=== PATIENT | male | born 1945 | race Caucasian/White ===

== ENCOUNTER 2019-04-05 19:03 | Inpatient (IN) | payer MEDICARE, MEDICAID, SELFPAY ==
[2019-04-05] VITALS (8 sets, daily range): BP systolic 122–157; BP diastolic 63–99; PULSE 66–72; RESP 12–18; TEMP 36.1–36.3; O2SAT 88–100; BMI 24.8
--- NOTE | ~2019-04-05 | XR_ITS ---
XR chest 2V 04/05/2019 19:49 Indication: Shortness of breath. History of bronchitis. Urethral cancer. Procedure: AP and lateral views of the chest Comparison: 11/20/2018 Findings: Heart size normal. Port catheter tip in the SVC. No focal air space disease, pulmonary edwin a, pleural effusion or suspected pneumothorax. No acute osseous abnormality. There is atherosclerosis and ectasia of the aorta. The lungs are hyperinflated which is consistent with, but not diagnostic o f chronic obstructive pulmonary disease. Impression: 1: No acute cardiopulmonary disease. Reviewed, dictated and finalized at location A. RGIST Impression: 1: No acute cardiopulmonary disease.
--- NOTE | ~2019-04-05 | NM_ITS ---
NM lung vent and perfusion INDICATION: Dyspnea. Shortness of breath with exertion. TECHNIQUE: The patient inhaled aerosolized 6.5 mCi xenon-133. Following ventilation scan, 5.4 mCi Tc 99m MAA was injected intravenously for perfusion images. Multiple images were then acquired. COMPARISON: Chest x-ray dated 04/05/2019 220 FINDINGS: The comparison chest radiograph demonstrates no pulmonary infiltrates or pleural fluid. No ventilation/perfusion mismatches are identified. There is retention of tracer washout images, consist ent with obstructive pulmonary disease. There is a matched defects in the left midlung.. IMPRESSION: 1: Low probability for pulmonary embolism.. Reviewed, dictated and finalized at location A. MENT SETTER
--- NOTE | 2019-04-05 19:05 | ED.SOB ---
HPI - SOB/Dyspnea General Chief Complaint: Shortness of Breath/Dyspnea Stated Complaint: diff breathing Time Seen by Provider: 04/05/19 19:05 Source: patient and old records reviewed Mode of arrival: EMS Limitations: no limitations History of Present Illness HPI Narrative: A 73 y/o male presents to the ED via EMS d/t worsening SOB for the past week. He reports associated productive cough, nausea, and some chest discomfort . He notes that any exertion aggravates his SOB and that resting or laying down alleviates his SOB. He denies any fevers, chills, vomiting, diarrhea, ABD pain, and any other medical complaints at this time. MD elicited complaint: shortness of breath Pertinent past history: asthma Onset (ago): week(s) (1) Timing: progressively worsening Exacerbating factors: exertion Relieving factors: rest (and laying down) Known history of: asthma Associated symptoms: chest pain ( discomfort ), cough (productive) and nausea/vomiting (no vomiting) Treatment prior to arrival: oxygen Related Data Home Medications Medication Instructions Recorded Confirmed albuterol sulfate [ProAir HFA] 2 puff INHALATION QID 12/20/18 12/20/18 amlodipine 5 mg PO DAILY 12/20/18 12/20/18 atenolol 100 mg PO DAILY 12/20/18 12/20/18 hydrocodone-acetaminophen 2 tablet PO Q6H PRN 12/20/18 12/20/18 hydroxyzine HCl 10 mg PO QID PRN 12/20/18 12/20/18 losartan 50 mg PO DAILY 12/20/18 12/20/18 omeprazole 20 mg PO BID 12/20/18 12/20/18 rosuvastatin 10 mg PO DAILY 12/20/18 12/20/18 venlafaxine 75 mg PO BID 12/20/18 12/20/18 Allergies Allergy/AdvReac Type Severity Reaction Status Date / Time lisinopril Allergy Mild Rash Verified 12/15/18 12:34 tramadol Allergy Mild Rash Verified 12/15/18 12:34 codeine Allergy Unknown Nausea Verified 12/15/18 12:34 Review of Systems Review of Systems: All systems reviewed & are unremarkable except as noted in HPI and below Constitutional: Constitutional: Denies chills and Denies fever(s) Cardiovascular: Cardiovascular: Reports chest pain ( discomfort ) Respiratory: Respiratory: Reports cough (productive) and Reports dyspnea Gastrointestinal: Gastrointestinal: Denies abdominal pain, Denies diarrhea, Reports nausea and Denies vomiting [facility] Past Medical History Medical History (Updated 04/05/19 @ 22:57 by Eduardo Smith DO) Arthritis Asthma CAD (coronary artery disease) Cataracts, bilateral Depression GERD (gastroesophageal reflux disease) H/O: HTN (hypertension) Herniated disc Hypercholesteremia Prostate CA Ureter cancer Surgical History Surgical History (Updated 04/05/19 @ 19:30 by Jerson Hurtado) H/O prostatectomy History of cystoscopy Hx of bilateral cataract extraction Hx of cardiac cath Social History Social History (Updated 04/05/19 @ 19:30 by Jerson Hurtado) Smoking status: Former smoker Second hand tobacco smoke exposure: Yes Gender identity (if verbalized by the patient): Male Comments PCP: Dr. Lucero. Exam Narrative: Exam Narrative: APPEARANCE: No acute distress, nontoxic, resting in bed EYES: EOMI HEENT: Normocephalic, atraumatic, bilateral turbinates boggy, mild erythema no exudate posterior pharynx RESPIRATORY: No respiratory distress Clear to auscultation bilaterally with no rhonchi wheezing or rales. CARDIOVASCULAR: Regular rate and rhythm without murmurs rubs or gallops. ABDOMINAL: Soft, nontender, nondistended, no rebound or guarding MUSCULOSKELETAl: Moves all extremities. No clubbing, cyanosis or edema. NEURO: Awake and alert. Following commands, speech normal, no focal deficits SKIN:: Warm, dry. No rashes lesions or abrasions PSYCHIATRIC: Normal affect/mood, Course Course Emergency Course: Discussed with patient and family results of workup and diagnosis. Discussed need for admission. Patient and family understand and agree to current treatment plan Consultations Consultation #1: Discussed case with Dr. Norton (Hospitalist). Accepts the pt. Date: 04/05/19 Time: 22:04
[2019-04-05] MEDS: ALBUTEROL SULFATE NEB 2.5 MG/0.5 ML INH 5 MG INHALATION (19:21)
[2019-04-05] MEDS: IPRATROPIUM BR 0.02% INH SOLN 0.5 MG/2.5 ML VIAL INHALATION (19:22)
--- NOTE | 2019-04-05 19:25 | PC.NURSE ---
Report to ROMAN Epperson, to continue care.
[2019-04-05 19:34] LABS: Hematocrit 26.4 % (42.0-52.0); Mean Corpuscular HGB Conc 30.3 g/dl (32-36); Mean Corpuscular Hemoglobin 29.7 pg (26-34); Mean Corpuscular Volume 98.1 fl (80-100); Mean Platelet Volume 10.7 fl (7.4-10.4); Platelet Count Result 213 k/mm3 (150-375); Red Blood Count 2.69 M/mm3 (4.6-6.20); Red Cell Distribution Width 19.4 % (11.5-14.5); White Blood Count 6.8 K/mm3 (4.5-10.0)
[2019-04-05 19:45] LABS: Lactic Acid Reflex 1.8 mmol/L (0.7-2.1)
[2019-04-05 19:46] LABS: Alanine Aminotransferase 11 U/L (4-50); Albumin Level 3.9 g/dL (3.5-5.1); Alkaline Phosphatase 72 U/L (38-126); Aspartate Amino Transferase 26 U/L (17-59); Bilirubin,Total 0.7 mg/dL (0.2-1.3); Blood Urea Nitrogen 32 mg/dL (9-20); Calcium 7.7 mg/dL (8.4-10.2); Carbon Dioxide 25 mmol/L (22-30); Chloride 101 mmol/L (98-107); Estimated CRCL calculation 26 ml/min; Estimated Glomerular Filt Rate 29; Glucose 128 mg/dL (75-110); INR 1.1; Potassium 3.9 mmol/L (3.4-5.0); Prothrombin Time 13.9 Seconds (11.1-14.7); Sodium 140 mmol/L (137-145)
[2019-04-05 19:47] LABS: Partial Thromboplastin Time 41.4 SECONDS (22.3-36.8)
--- NOTE | 2019-04-05 19:47 | ECG_ITS ---
Measurements Intervals Salters Rate: 74 P: 35 WI: 170 QRS: 33 QRSD: 94 T: 39 QT: 413 QTc: 458 Interpretive Statements SINUS RHYTHM FREQUENT VENTRICULAR PREMATURE COMPLEXES NONSPECIFIC T-WAVE ABNORMALITY- INF/LAT LEADS BASELINE ARTIFACT- I, II, III, AVR, AVL, AVF, V1-V6 ABNORMAL ECG Electronically Signed On 04-06-2019 15:37:37 CITY [employer] by Petey Jackson D.O.
[2019-04-05 19:50] LABS: Band Neutrophils Percent 1 % (0-6); Eosinophils Absolute Manual 0.13 K/mm3 (0.02-0.5); Eosinophils Percent Manual 2 % (0-4); Lymphocytes Absolute Manual 0.88 K/mm3 (1.1-4.5); Lymphocytes Percent Manual 13 % (18-44); Monocytes Absolute Manual 1.56 K/mm3 (0.1-0.90); Monocytes Percent Manual 23 % (3-9); Neutrophils Absolute Manual 4.21 K/mm3 (1.3-6.7); Neutrophils Percent Manual 61 % (46-73); Platelet Estimate Adequate (Adequate); Total Cells Counted 100
[2019-04-05 19:51] LABS: Anisocytosis 1+ (NORMAL)
[2019-04-05] MEDS: SODIUM CHLORIDE 0.9% IV 1,000 ML 999 ML IV CONT (19:56)
[2019-04-05 19:58] LABS: NT Pro B Type Natriuretic Pept 10500 PG/ML (5-100); Troponin I < 0.012 ng/mL (0.000-0.034)
--- NOTE | 2019-04-05 20:05 | PC.NURSE ---
pt states he isn't able to urinate at this time. urinal at bedside, IV fluids flowing. pt instructed to use call light when able to give urine sample.
--- NOTE | 2019-04-05 20:30 | PC.NURSE ---
ptgave verbal order ot this rn to walk pt w/ pulse ox. pt 02 sat decreased to 95# w/ few steps. notified.
[2019-04-05 20:48] LABS: Add Urine Microscopic? YES; Appearance Urine Clear (Clear); Bilirubin Urine Negative (Negative); Blood Urine 3+ (Negative); Color Urine Yellow (Yellow); Glucose Urine UA Negative (Negative); Ketones Urine Negative (Negative); Leukocyte Esterase Ur 1+ LEU/UL (Negative); Mucus Urine Rare /lpf; Nitrate Urine Negative (Negative); Protein Urine 2+ mg/dL (Negative); RBC Urine 21-50 /hpf (0-2); Specific Grav Ur 1.013 (1.001-1.035); Squamous Epithelial Cell Urine Rare /hpf (Few); Urobilinogen Urine Negative mg/dL (<2.0); WBC Urine 31-50 /hpf
--- NOTE | 2019-04-05 23:16 | ADMGEN ---
This patient, William Cruz, was admitted to Medical Room 346-. Patient/family oriented to hospital policies and general routines including ID bracelet, bed and alarms, visiting hours, pain management, procedures, bathroom and other care routines, personal items, smoking policy, room service/diet, and visiting hours. Valuables list has been completed. Information on how to activate the Rapid Response Team has been discussed. Patient/Family are encouraged to report perceived risks to care and to ask questions if they do not understand what they are told or what they should do.
[2019-04-06] VITALS (17 sets, daily range): BP systolic 132–177; BP diastolic 56–89; PULSE 58–91; RESP 16–20; TEMP 36–37.3; O2SAT 91–98; BMI 24.8
[2019-04-06 05:13] LABS: Basophils Percent Auto 0.9 % (0.2-1.2); Eosinophils Percent Auto 0.7 % (0-4.4); Hematocrit 23.1 % (42.0-52.0); Immature Granulocyte Absolute 0.07 K/mm3 (0.00-0.031); Immature Granulocyte Percent A 1.5 % (0-0.5); Lymphocytes Absolute Auto 0.89 K/mm3 (0.9-3.2); Lymphocytes Percent Auto 19.6 % (18.3-44.2); Mean Corpuscular HGB Conc 29.9 g/dl (32-36); Mean Corpuscular Hemoglobin 29.5 pg (26-34); Mean Corpuscular Volume 98.7 fl (80-100); Monocytes Absolute Auto 1.4 K/mm3 (0.1-0.6); Monocytes Percent Auto 31.5 % (2.6-8.5); Neutrophils Absolute Auto 2.1 K/mm3 (1.3-6.7); Neutrophils Percent Auto 45.8 % (45.5-73.1); Nucleated Red Blood Cells Absolute Auto 0.1 K/mm3 (0.0-0.012); Nucleated Red Blood Cells Perc 1.5 % (0.0-0.2); Platelet Count Result 170 k/mm3 (150-375); Red Blood Count 2.34 M/mm3 (4.6-6.20); Red Cell Distribution Width 19.2 % (11.5-14.5); White Blood Count 4.5 K/mm3 (4.5-10.0)
[2019-04-06 05:26] LABS: Alanine Aminotransferase 9 U/L (4-50); Albumin Level 3.3 g/dL (3.5-5.1); Alkaline Phosphatase 61 U/L (38-126); Aspartate Amino Transferase 24 U/L (17-59); Bilirubin,Total 0.4 mg/dL (0.2-1.3); Blood Urea Nitrogen 33 mg/dL (9-20); Calcium 7.2 mg/dL (8.4-10.2); Carbon Dioxide 27 mmol/L (22-30); Chloride 105 mmol/L (98-107); Estimated CRCL calculation 31 ml/min; Estimated Glomerular Filt Rate 35; Glucose 99 mg/dL (75-110); Potassium 3.7 mmol/L (3.4-5.0); Sodium 140 mmol/L (137-145)
[2019-04-06 07:45] LABS: Hemoglobin 6.9 g/dL (14.0-18.0)
[2019-04-06 07:46] LABS: Anisocytosis 1+ (NORMAL); Hypochromasia 1+ (NORMAL); Platelet Estimate Adequate (Adequate)
--- NOTE | 2019-04-06 08:20 | ECHO_ITS ---
Patient Info Name: William Cruz Age: 73 years : 1945 Gender: Male Ht: 69 in Wt: 168 lbs BSA: 1.93 m2 HR: 76 bpm BP: 177 / 62 mmHg Heart Rhythm: Sinus Rhythm Technical Quality: Good Exam Date: 04/06/2019 9:04 AM Exam Location: [facility] Pulmonary Patient Status: Inpatient Admit Date: 04/05/2019 Staff Ordering Physician: Virgilio Mi MD Rn Surgical Pcu: Jack Phillips RDCS Attending Provider: Ayaz Norton MD Referring Physician: Hiwot ARANGO; Exam Type: CA echo dop color flow w con Study Info Indications R06.02 - Shortness of breath Complete two-dimensional, color flow and Doppler transthoracic echocardiogram is performed with contrast to opacify the left ventrical and to improve the deliniation of the left ventrical endocarial boarders. History/Risk Factors Acute respiratory failure w/ hypoxia; CAD, SOB, CHF w/ BNP 10.5k, HTN. Summary 1. Left ventricular systolic function is normal, estimated at 65-70%. 2. There is mild concentric increased left ventricular wall thickness. 3. There is mild aortic valve stenosis with a peak velocity of 216.68 cm/s, mean gradient of 9 mmHg, and aortic valve area of 1.46 cm2. Left Ventricle Left ventricular chamber dimension is normal. Left ventricular systolic function is normal, estimated at 65-70%. There is mild concentric increased left ventricular wall thickness. The left ventricular diastolic function is grade I diastolic dysfunction. Right Ventricle Right ventricular chamber dimension is normal. Left Atria Left atrial chamber dimension is mildly enlarged. Right Atria Right atrial chamber dimension is normal. Aortic Valve The aortic valve is trileaflet. There is moderate aortic valve sclerosis. There is mild aortic valve stenosis with a peak velocity of 216.68 cm/s, mean gradient of 9 mmHg, and aortic valve area of 1.46 cm2. Pulmonic Valve The pulmonic valve is not well visualized. Mitral Valve The mitral valve has normal leaflets and calcified annulus. Tricuspid Valve The tricuspid valve leaflets are normal. Pericardium/Pleural The pericardium appears normal. Aorta The aortic root size at the sinus of Valsalva is normal. Left Ventricular Outflow Tract Name Value Normal LVOT 2D LVOT Diameter 1.79 cm LVOT Doppler LVOT Peak Gradient 6 mmHg LVOT Mean Gradient 3 mmHg LVOT VTI 22.79 cm LVOT VTI/AV VTI Ratio 0.58 LVOT Stroke Volume 57.48 ml LVOT CO 4.69 l/min LVOT CI 2.43 L/min/m2 Mitral Valve Name Value Normal MV Doppler MV Decel [place] 311.20 cm/s2 MV PHT 0 s MV Area (PHT) 2.31 cm
[2019-04-06] MEDS: IPRATROPIUM BR 0.02% INH SOLN 0.5 MG/2.5 ML VIAL INHALATION ×3 (08:39→19:30)
[2019-04-06] MEDS: ALBUTEROL SULFATE NEB 2.5 MG/0.5 ML INH 5 MG INHALATION ×3 (08:40→19:30)
--- NOTE | 2019-04-06 10:35 | PM.IMHP ---
H&P: HPI History of Present Illness Chief complaint: ACUTE RESPIRATORY FAILURE WITH HYPOXIA,UTI,BRONCHI Narrative: Date of visit 04/06/2019 1000. William Cruz is a 73 year old hypertensive white male undergoing chemotherapy for ureteral carcinoma with . He presented to the emergency room per EMS with increasing shortness of breath over the last week. Has had a cough productive of greenish phlegm without any chest pain or shortness of breath at notice specially shortness breath with exertion relieved with resting or lying down. No PND or orthopnea. He arrived on oxygen at 1 point he dipped to 88% in the ER with normal chest x-ray and ventilation perfusion lung scan he was admitted for treatment. States that he felt better after the updrafts and breathing easier this a.m. Review of Systems Review of Systems: Narrative: Constitutional: States that he has lost about 20 lb with chemotherapy and as stated above no fever no chills. Appetite has been poor Eyes: No double visions or scotoma Mouth no pharyngitis laryngitis Pulmonary as per present illness CV no palpitation or chest pain as stated or pedal edema GI no melena hematochezia diarrhea nausea are or vomiting no dysuria no hematuria Muscle skeletal no particular joint discomfort Integument no skin breakdown rashes Neuro no seizures no syncope Psych no on toward depression Remainder of the review of systems if not documented here were evaluated and found to be negative [facility] Past Medical History Medical History (Updated 04/06/19 @ 10:46 by Virgilio Mi MD) Arthritis Asthma CAD (coronary artery disease) Cataracts, bilateral Depression GERD (gastroesophageal reflux disease) H/O: HTN (hypertension) Herniated disc Hypercholesteremia Prostate CA Ureter cancer Surgical History Surgical History (Updated 04/05/19 @ 19:30 by Jerson Hurtado) H/O prostatectomy History of cystoscopy Hx of bilateral cataract extraction Hx of cardiac cath Family History Family History (Updated 04/05/19 @ 23:35 by Latoya Lundberg RN) Father Acute myocardial infarction Hypertension Prostate carcinoma Mother Cerebrovascular accident Congestive heart failure Hypertension Sibling Lung cancer Social History Social History (Updated 04/05/19 @ 19:30 by Jerson Hurtado) Smoking packs per day: 2.5 Smoking cigarettes per day: 50.0 Years smoked: 27 Smoking pack-years: 67.50 Smoking status: Former smoker Second hand tobacco smoke exposure: Yes Alcohol intake: never Substance use: never Substance use type: does not use Gender identity (if verbalized by the patient): Male Spiritual care concerns: No Agree to blood products: Yes Meds Home Medications and Allergies Home Medications Medication Instructions Recorded Confirmed Type albuterol sulfate [ProAir HFA] 2 puff INHALATION QID PRN 12/20/18 04/05/19 History amlodipine 5 mg PO DAILY 12/20/18 04/05/19 History atenolol 100 mg PO DAILY 12/20/18 04/05/19 History hydroxyzine HCl 10 mg PO QID PRN 12/20/18 04/05/19 History omeprazole 20 mg PO BID 12/20/18 04/05/19 History rosuvastatin 10 mg PO DAILY 12/20/18 04/05/19 History venlafaxine 75 mg PO BID 12/20/18 04/05/19 History acetaminophen [Acetaminophen Extra 1,000 mg PO QID PRN 04/05/19 04/05/19 History Strength] calcipotriene 1 applic TOPICAL BID PRN 04/05/19 04/05/19 History aspirin 81 mg PO DAILY 04/06/19 04/06/19 History Allergies Allergy/AdvReac Type Severity Reaction Status Date / Time lisinopril Allergy Mild Rash Verified 12/15/18 12:34 tramadol Allergy Mild Rash Verified 12/15/18 12:34 codeine Allergy Unknown Nausea Verified 12/15/18 12:34 Vital Signs Vital Signs - 24 hr 04/05/19 18:56 04/05/19 20:24 04/05/19 21:04 Temperature 36.1 C L Pulse Rate 67 66 Respiratory Rate 18 16 Blood Pressure 136/72 142/63 H Pulse Oximetry 94 92 88 L 04/05/19 21:06 04/05/19 21:07 04/05/19 22:38 Temperature Pulse Rate
[2019-04-06] MEDS: ASPIRIN 81 MG CHEWABLE TABLET PO (11:02)
[2019-04-06] MEDS: AMLODIPINE BESYLATE 5 MG TABLET PO (11:02)
[2019-04-06] MEDS: atenoloL 50 MG TABLET 100 MG PO (11:02)
[2019-04-06] MEDS: DOXYCYCLINE HYCLATE 100 MG TABLET PO ×2 (11:02→21:02)
[2019-04-06] MEDS: hydrOXYzine HCL 10 MG TABLET PO (11:03)
[2019-04-06] MEDS: ROSUVASTATIN 10 MG TABLET PO (11:03)
[2019-04-06] MEDS: PANTOPRAZOLE 40 MG TABLET PO ×2 (11:03→21:02)
[2019-04-06 11:23] LABS: Reticulocyte Hemoglobin Conten 27.1 pg (28.2-35.7); Reticulocyte Percent 6.08 % (0.7-4.3); Reticulocytes Absolute 0.15 B/L (32.2-175.7)
[2019-04-06 11:31] LABS: Lactate Dehydrogenase 879 U/L (313-618)
[2019-04-06 11:54] LABS: Iron 37 ug/dL (49-181)
[2019-04-06 12:04] LABS: Percent Iron Saturation 14 % (20-50)
[2019-04-06] MEDS: SODIUM CHLORIDE 0.9% IV 250 ML 30 ML IV CONT (14:21)
[2019-04-06] MEDS: VENLAFAXINE HCL 75 MG TABLET PO (18:16)
[2019-04-06] MEDS: MELATONIN 5 MG TABLET PO (21:02)
[2019-04-06] MEDS: ENOXAPARIN 30 MG/0.3 ML SYRINGE SUB-Q (21:02)
[2019-04-07] VITALS (17 sets, daily range): BP systolic 111–149; BP diastolic 69–72; PULSE 66–88; RESP 16–18; TEMP 36.3–36.4; O2SAT 84–94
[2019-04-07] MEDS: IPRATROPIUM BR 0.02% INH SOLN 0.5 MG/2.5 ML VIAL INHALATION ×4 (01:45→19:50)
[2019-04-07] MEDS: ALBUTEROL SULFATE NEB 2.5 MG/0.5 ML INH 5 MG INHALATION ×4 (01:45→19:50)
[2019-04-07 06:05] LABS: Basophils Absolute Auto 0.1 K/mm3 (0.0-0.1); Basophils Percent Auto 1.3 % (0.2-1.2); Eosinophils Percent Auto 0.7 % (0-4.4); Hematocrit 26.7 % (42.0-52.0); Hemoglobin 8.1 g/dL (14.0-18.0); Immature Granulocyte Absolute 0.09 K/mm3 (0.00-0.031); Immature Granulocyte Percent A 1.6 % (0-0.5); Lymphocytes Absolute Auto 0.88 K/mm3 (0.9-3.2); Lymphocytes Percent Auto 15.8 % (18.3-44.2); Mean Corpuscular HGB Conc 30.3 g/dl (32-36); Mean Corpuscular Hemoglobin 28.9 pg (26-34); Mean Corpuscular Volume 95.4 fl (80-100); Mean Platelet Volume 11.4 fl (7.4-10.4); Monocytes Absolute Auto 1.6 K/mm3 (0.1-0.6); Monocytes Percent Auto 28.5 % (2.6-8.5); Neutrophils Absolute Auto 2.9 K/mm3 (1.3-6.7); Neutrophils Percent Auto 52.1 % (45.5-73.1); Nucleated Red Blood Cells Perc 0.7 % (0.0-0.2); Platelet Count Result 175 k/mm3 (150-375); Red Cell Distribution Width 19.1 % (11.5-14.5); White Blood Count 5.6 K/mm3 (4.5-10.0)
[2019-04-07 06:26] LABS: Blood Urea Nitrogen 30 mg/dL (9-20); Calcium 7.5 mg/dL (8.4-10.2); Carbon Dioxide 25 mmol/L (22-30); Chloride 103 mmol/L (98-107); Estimated CRCL calculation 31 ml/min; Estimated Glomerular Filt Rate 35; Glucose 90 mg/dL (75-110); Potassium 3.7 mmol/L (3.4-5.0); Sodium 139 mmol/L (137-145)
[2019-04-07] MEDS: atenoloL 50 MG TABLET 100 MG PO (10:10)
[2019-04-07] MEDS: VENLAFAXINE HCL 75 MG TABLET PO ×2 (10:11→17:06)
[2019-04-07] MEDS: DOXYCYCLINE HYCLATE 100 MG TABLET PO ×2 (10:11→21:06)
[2019-04-07] MEDS: ROSUVASTATIN 10 MG TABLET PO (10:11)
[2019-04-07] MEDS: ASPIRIN 81 MG CHEWABLE TABLET PO (10:12)
[2019-04-07] MEDS: AMLODIPINE BESYLATE 5 MG TABLET PO (10:12)
[2019-04-07] MEDS: PANTOPRAZOLE 40 MG TABLET PO ×2 (10:12→21:06)
[2019-04-07] MEDS: methylPREDNISolone SOD SUCC 40 MG VIAL IV PUSH ×2 (13:56→21:07)
--- NOTE | 2019-04-07 16:17 | PC.NURSE ---
Patient refuses bed alarm. Physician aware.
--- NOTE | 2019-04-07 17:22 | PM.IMPN ---
Progress Note: A&P Assessment and Plan (1) Acute respiratory failure with hypoxia: Code(s): J96.01 - Acute respiratory failure with hypoxia Status: Acute Assessment and Plan: Probable multifactorial, bronchitis, anemia. with elevated BNP echo performed which showed normal ejection fraction and no valvular problems probable grade 1 diastolic dysfunction only Will need more than a 2 midnight stay for treatment of above (2) Anemia: Code(s): D64.9 - Anemia, unspecified Status: Acute Assessment and Plan: Again multifactorial. Chronic anemia secondary to his ongoing chronic renal failure but with his recent chemotherapy contributing. No history of any blood loss. With hemoglobin dipping below 7 04/06, transfused 1 unit packed cells and HGB 8.1 today. Iron studies compatible with anemia chronic disease but B12 level only 276 so will give injection of cyanocobalamin (3) Pyuria: Code(s): R82.81 - Pyuria Status: Acute Assessment and Plan: No urinary symptoms and with his urological problems could be chronic and cultures are no growth (4) Bronchitis: Code(s): J40 - Bronchitis, not specified as acute or chronic Status: Acute Assessment and Plan: Productive cough by history and crackles on physical exam. Cultures obtained and started on ceftriaxone and added doxycycline. If echo benign and improving so will hold off on CT of chest (5) Chronic renal failure, stage 3 (moderate): Code(s): N18.3 - Chronic kidney disease, stage 3 (moderate) Status: Acute Assessment and Plan: Creatinine essentially unchanged from prior continue to monitor stable at 1.9 (6) Malignant neoplasm of right ureter: Code(s): C66.1 - Malignant neoplasm of right ureter Status: Acute Assessment and Plan: Finishing last round of chemo and following with Dr. Melania fink (7) DVT prophylaxis: Code(s): Z29.9 - Encounter for prophylactic measures, unspecified Status: Acute Assessment and Plan: Low-dose Lovenox Subjective Date/time seen: 04/07/19 17:22 Interval history: Date of visit 04/07/2019. 73-year-old male with mild COPD hypertension undergoing chemotherapy for ureteral carcinoma presented with increasing cough and shortness of breath. No definite infiltrate on chest x-ray but with wheezing and productive cough treated with and antibiotics with updraft treatments. Feel some better but still short of breath with exertion. No pedal edema as before Exam Narrative: Exam Narrative: Blood pressure 110/72 pulse 82 with respirations 16 per minute afebrile saturating 93% on 1 L nasal cannula Pupils equal reactive to light sclera anicteric Mouth mucosa appears normal dentures Neck supple Lungs faint expiratory wheezing and still faint crackle right posterior base CV regular rate rhythm no murmurs or gallops Abdomen soft nontender no masses Extremities without edema distal pulses are 2+ Neuro alert pleasant cooperative no focal deficits Objective Data Vital Signs Vital Signs: Vital Signs - 24 hr 04/06/19 17:55 04/06/19 18:10 04/06/19 19:31 Temperature 36.7 C 36.0 C L Pulse Rate 72 68 70 Respiratory Rate 16 16 16 Blood Pressure 144/72 H 156/72 H Pulse Oximetry 94 95 95 04/06/19 19:41 04/06/19 22:00 04/07/19 01:45 Temperature 36.4 C L Pulse Rate 74 72 72 Respiratory Rate 18 16 Blood Pressure 151/78 H Pulse Oximetry 95 04/07/19 01:54 04/07/19 05:14 04/07/19 08:40 Temperature 36.4 C Pulse Rate 74 70 86 Respiratory Rate 16 18 16 Blood Pressure 149/69 H Pulse Oximetry 94 04/07/19 08:42 04/07/19 08:45 04/07/19 08:50 Temperature Pulse Rate 76 88 Respiratory Rate 16 16 Blood Pressure Pulse Oximetry 91 91 04/07/19 10:10 04/07/19 12:58 04/07/19 13:03 Temperature Pulse Rate 76 78 80 Respiratory Rate 16 16 Blood Pressure Pulse Oximetry 04/07/19 13:46 04/07/19 14:02 04/07/19
[2019-04-07] MEDS: MELATONIN 5 MG TABLET PO (21:06)
[2019-04-07] MEDS: ENOXAPARIN 30 MG/0.3 ML SYRINGE SUB-Q (21:07)
[2019-04-08] VITALS (15 sets, daily range): BP systolic 142–148; BP diastolic 73–74; PULSE 62–84; RESP 16–20; TEMP 36.1–36.6; O2SAT 91–97
[2019-04-08] MEDS: ALBUTEROL SULFATE NEB 2.5 MG/0.5 ML INH 5 MG INHALATION ×4 (01:05→19:41)
[2019-04-08] MEDS: IPRATROPIUM BR 0.02% INH SOLN 0.5 MG/2.5 ML VIAL INHALATION ×4 (01:05→19:41)
[2019-04-08 05:58] LABS: Basophils Percent Auto 0.3 % (0.2-1.2); Hematocrit 27.3 % (42.0-52.0); Hemoglobin 8.2 g/dL (14.0-18.0); Immature Granulocyte Absolute 0.16 K/mm3 (0.00-0.031); Immature Granulocyte Percent A 4.3 % (0-0.5); Lymphocytes Absolute Auto 0.36 K/mm3 (0.9-3.2); Lymphocytes Percent Auto 9.7 % (18.3-44.2); Mean Corpuscular Volume 96.5 fl (80-100); Mean Platelet Volume 11.6 fl (7.4-10.4); Monocytes Absolute Auto 0.2 K/mm3 (0.1-0.6); Monocytes Percent Auto 6.2 % (2.6-8.5); Neutrophils Percent Auto 79.5 % (45.5-73.1); Nucleated Red Blood Cells Perc 0.8 % (0.0-0.2); Platelet Count Result 166 k/mm3 (150-375); Red Blood Count 2.83 M/mm3 (4.6-6.20); Red Cell Distribution Width 18.4 % (11.5-14.5); White Blood Count 3.7 K/mm3 (4.5-10.0)
[2019-04-08 06:10] LABS: Blood Urea Nitrogen 34 mg/dL (9-20); Calcium 7.7 mg/dL (8.4-10.2); Carbon Dioxide 24 mmol/L (22-30); Chloride 105 mmol/L (98-107); Estimated CRCL calculation 29 ml/min; Estimated Glomerular Filt Rate 33; Glucose 167 mg/dL (75-110); Potassium 4.1 mmol/L (3.4-5.0); Sodium 141 mmol/L (137-145)
[2019-04-08] MEDS: methylPREDNISolone SOD SUCC 40 MG VIAL IV PUSH ×3 (06:10→21:30)
[2019-04-08] MEDS: DOXYCYCLINE HYCLATE 100 MG TABLET PO ×2 (09:20→21:30)
[2019-04-08] MEDS: atenoloL 50 MG TABLET 100 MG PO (09:20)
[2019-04-08] MEDS: ASPIRIN 81 MG CHEWABLE TABLET PO (09:20)
[2019-04-08] MEDS: AMLODIPINE BESYLATE 5 MG TABLET PO (09:20)
[2019-04-08] MEDS: ROSUVASTATIN 10 MG TABLET PO (09:20)
[2019-04-08] MEDS: PANTOPRAZOLE 40 MG TABLET PO ×2 (09:21→21:30)
[2019-04-08] MEDS: VENLAFAXINE HCL 75 MG TABLET PO ×2 (09:21→16:51)
--- NOTE | 2019-04-08 13:46 | PM.IMPN ---
Progress Note: A&P Assessment and Plan (1) Acute respiratory failure with hypoxia: Code(s): J96.01 - Acute respiratory failure with hypoxia Status: Acute Assessment and Plan: Probable multifactorial, bronchitis, anemia. with elevated BNP echo performed which showed normal ejection fraction and no valvular problems probable grade 1 diastolic dysfunction only Will need more than a 2 midnight stay for treatment of above (2) Anemia: Code(s): D64.9 - Anemia, unspecified Status: Acute Assessment and Plan: Again multifactorial. Chronic anemia secondary to his ongoing chronic renal failure but with his recent chemotherapy contributing. No history of any blood loss. With hemoglobin dipping below 7 04/06, transfused 1 unit packed cells and HGB 8.2 today. Iron studies compatible with anemia chronic disease but B12 level only 276 so will give injection of cyanocobalamin (3) Pyuria: Code(s): R82.81 - Pyuria Status: Acute Assessment and Plan: No urinary symptoms and with his urological problems could be chronic and cultures are no growth (4) Bronchitis: Code(s): J40 - Bronchitis, not specified as acute or chronic Status: Acute Assessment and Plan: Productive cough by history and crackles on physical exam. Cultures obtained and started on ceftriaxone and added doxycycline. If echo benign and improving so will hold off on CT of chest (5) Chronic renal failure, stage 3 (moderate): Code(s): N18.3 - Chronic kidney disease, stage 3 (moderate) Status: Acute Assessment and Plan: Creatinine essentially unchanged from prior continue to monitor stable at 1.9-2.0 (6) Malignant neoplasm of right ureter: Code(s): C66.1 - Malignant neoplasm of right ureter Status: Acute Assessment and Plan: Finishing last round of chemo and following with Dr. Velázquez (7) DVT prophylaxis: Code(s): Z29.9 - Encounter for prophylactic measures, unspecified Status: Acute Assessment and Plan: Low-dose Lovenox Subjective Date/time seen: 04/08/19 13:46 Interval history: Date of visit 04/08/2019. 73-year-old male with mild COPD hypertension undergoing chemotherapy for ureteral carcinoma presented with increasing cough and shortness of breath. No definite infiltrate on chest x-ray but with wheezing and productive cough treated with and antibiotics with updraft treatments. Feel some better but still short of breath with exertion. Still desaturates on room air No pedal edema as before Exam Narrative: Exam Narrative: Blood pressure 142/74 pulse 68 with respirations 16 per minute afebrile saturating 92% on 1 L nasal cannula Pupils equal reactive to light sclera anicteric Mouth mucosa appears normal dentures Neck supple Lungs no wheezing today and but faint crackle right posterior base CV regular rate rhythm no murmurs or gallops Abdomen soft nontender no masses Extremities without edema distal pulses are 2+ Neuro alert pleasant cooperative no focal deficits Objective Data Vital Signs Vital Signs: Vital Signs - 24 hr 04/07/19 14:02 04/07/19 14:03 04/07/19 19:50 Temperature Pulse Rate 82 Respiratory Rate 16 Blood Pressure Pulse Oximetry 84 L 92 04/07/19 20:02 04/07/19 22:00 04/07/19 23:30 Temperature 36.4 C Pulse Rate 82 66 Respiratory Rate 16 16 Blood Pressure 128/69 Pulse Oximetry 92 92 04/08/19 01:05 04/08/19 01:14 04/08/19 06:14 Temperature 36.6 C Pulse Rate 79 78 67 Respiratory Rate 16 16 18 Blood Pressure 142/74 H Pulse Oximetry 97 04/08/19 07:27 04/08/19 07:42 04/08/19 09:20 Temperature Pulse Rate 67 79 67 Respiratory Rate 20 20 Blood Pressure Pulse Oximetry 91 04/08/19 09:30 Temperature Pulse Rate 67 Respiratory Rate 20 Blood Pressure Pulse Oximetry 91 Intake/Output Intake/Output: Intake & Output 04/05/19 04/06/19 04/07/19 04/08/19 23:59 23:59 23:5
[2019-04-08] MEDS: MELATONIN 5 MG TABLET PO (21:30)
[2019-04-08] MEDS: ENOXAPARIN 30 MG/0.3 ML SYRINGE SUB-Q (21:31)
[2019-04-09] VITALS (11 sets, daily range): BP systolic 129; BP diastolic 60; PULSE 66–80; RESP 16–20; TEMP 36.5; O2SAT 86–92
[2019-04-09] MEDS: ALBUTEROL SULFATE NEB 2.5 MG/0.5 ML INH 5 MG INHALATION ×2 (03:20→09:03)
[2019-04-09] MEDS: IPRATROPIUM BR 0.02% INH SOLN 0.5 MG/2.5 ML VIAL INHALATION ×2 (03:21→09:03)
[2019-04-09 06:44] LABS: Basophils Percent Auto 0.2 % (0.2-1.2); Hematocrit 24.6 % (42.0-52.0); Hemoglobin 7.5 g/dL (14.0-18.0); Immature Granulocyte Absolute 0.31 K/mm3 (0.00-0.031); Immature Granulocyte Percent A 3.1 % (0-0.5); Mean Corpuscular HGB Conc 30.5 g/dl (32-36); Mean Corpuscular Hemoglobin 29.2 pg (26-34); Mean Corpuscular Volume 95.7 fl (80-100); Mean Platelet Volume 10.8 fl (7.4-10.4); Monocytes Absolute Auto 0.8 K/mm3 (0.1-0.6); Monocytes Percent Auto 7.9 % (2.6-8.5); Neutrophils Absolute Auto 8.3 K/mm3 (1.3-6.7); Neutrophils Percent Auto 83.8 % (45.5-73.1); Nucleated Red Blood Cells Perc 0.3 % (0.0-0.2); Platelet Count Result 165 k/mm3 (150-375); Red Blood Count 2.57 M/mm3 (4.6-6.20); Red Cell Distribution Width 18.3 % (11.5-14.5); White Blood Count 9.9 K/mm3 (4.5-10.0)
[2019-04-09] MEDS: methylPREDNISolone SOD SUCC 40 MG VIAL IV PUSH (06:49)
[2019-04-09 07:17] LABS: Blood Urea Nitrogen 49 mg/dL (9-20); Carbon Dioxide 23 mmol/L (22-30); Chloride 104 mmol/L (98-107); Estimated CRCL calculation 31 ml/min; Estimated Glomerular Filt Rate 35; Glucose 154 mg/dL (75-110); Potassium 4.1 mmol/L (3.4-5.0); Sodium 139 mmol/L (137-145)
[2019-04-09] MEDS: ROSUVASTATIN 10 MG TABLET PO (09:03)
[2019-04-09] MEDS: DOXYCYCLINE HYCLATE 100 MG TABLET PO (09:03)
[2019-04-09] MEDS: AMLODIPINE BESYLATE 5 MG TABLET PO (09:03)
[2019-04-09] MEDS: VENLAFAXINE HCL 75 MG TABLET PO (09:03)
[2019-04-09] MEDS: ASPIRIN 81 MG CHEWABLE TABLET PO (09:03)
[2019-04-09] MEDS: PANTOPRAZOLE 40 MG TABLET PO (09:03)
[2019-04-09] MEDS: atenoloL 50 MG TABLET 100 MG PO (09:03)
--- NOTE | 2019-04-09 13:50 | HOMEO2EVAL ---
Home Oxygen Evaluation RC: Home Oxygen (O2) Evaluation Start: 04/09/19 07:07 Freq: ONCE Status: Active Protocol: RPE Activity Type Activity Date Activity User E-Sign Co-Sign Detail Recorded Client Recorded Date Recorded By Document 04/09/19 12:05 KRM [email or web address] 04/09/19 13:49 KRM Document 04/09/19 12:08 KRM [email or web address] 04/09/19 13:49 KRM Document 04/09/19 12:09 KRM [email or web address] 04/09/19 13:49 KRM Document 04/09/19 12:11 KRM [email or web address] 04/09/19 13:49 KRM Document 04/09/19 12:20 KRM [email or web address] 04/09/19 13:49 KRM 04/09/19 04/09/19 04/09/19 12:05 12:08 12:09 Home O2 Evaluation Test Phase Resting Exercise Exercise Oxygen Delivery Room Air Room Air Nasal Cannula Oxygen Flow Rate (L/min) 1 Pulse Oximetry (90-100 %) 92 86 L 88 L Pulse Rate (60-100 beats/min) 74 70 78 Activity Tolerance Good Good Ambulation Distance (feet) Treatment Charges O2 Evaluation 04/09/19 04/09/19 12:11 12:20 Home O2 Evaluation Test Phase Exercise Resting Oxygen Delivery Nasal Cannula Room Air Oxygen Flow Rate (L/min) 2 Pulse Oximetry (90-100 %) 91 92 Pulse Rate (60-100 beats/min) 70 78 Activity Tolerance Good Ambulation Distance (feet) 200 Treatment Charges
--- NOTE | 2019-04-09 13:50 | PCRCNOTE ---
HOME O2 EVALUATION DONE. PT. CURRENT HOME O2 NEEDS DID NOT CHANGE. PT. CURRENTLY WEARS 2LPM WITH ACTIVITY.
--- NOTE | 2019-04-11 13:26 | PM.DS ---
DS: Diagnosis Admitting Diagnosis Admitting Diagnosis: Acute respiratory failure with hypoxia Discharge Diagnosis (1) Acute respiratory failure with hypoxia: Code(s): J96.01 - Acute respiratory failure with hypoxia Status: Acute Assessment and Plan: Probable multifactorial, bronchitis, anemia. with elevated BNP echo performed which showed normal ejection fraction and no valvular problems probable grade 1 diastolic dysfunction only Transfused and treated for copd exacerbation and improved ventilation perfusion lung scan low probability for PE (2) Anemia: Code(s): D64.9 - Anemia, unspecified Status: Acute Assessment and Plan: Again multifactorial. Chronic anemia secondary to his ongoing chronic renal failure but with his recent chemotherapy contributing. No history of any blood loss. With hemoglobin dipping below 7 04/06, transfused 1 unit packed cells and HGB 7.5 day of discharge. Iron studies compatible with anemia chronic disease but B12 level only 276 so gave injection of cyanocobalamin 1000 (3) Pyuria: Code(s): R82.81 - Pyuria Status: Acute Assessment and Plan: No urinary symptoms and with his urological problems could be chronic and cultures are no growth (4) Bronchitis: Code(s): J40 - Bronchitis, not specified as acute or chronic Status: Acute Assessment and Plan: Productive cough by history and crackles on physical exam. Cultures obtained and started on ceftriaxone and added doxycycline. If echo benign and improved Steroids were added and treated as copd exacerbation with resolution patient has oxygen at home which she has used on an as-needed basis. was seen by respiratory therapy for evaluation continued uses same especially with exertion at 2 L nasal cannula (5) Chronic renal failure, stage 3 (moderate): Code(s): N18.3 - Chronic kidney disease, stage 3 (moderate) Status: Acute Assessment and Plan: Creatinine essentially unchanged from prior continue to monitor stable at 1.9-2.0 (6) Malignant neoplasm of right ureter: Code(s): C66.1 - Malignant neoplasm of right ureter Status: Acute Assessment and Plan: Finishing last round of chemo and following with Dr. Melania DURBIN: Summary Hospital Course Hospital Course: 73-year-old white male with COPD, stage III renal failure, who is undergoing chemotherapy for ureteral carcinoma presented with anemia and increasing cough and shortness of breath. treated for COPD exacerbation and transfuse 1 unit of packed cells and his symptoms markedly improved echo normal ejection fraction grade 1 diastolic dysfunction and ventilation perfusion lung scan low probability for PE Time Spent with Patient Time attestation: Total time spent providing and/or coordinating discharge services:35 minutes Exam Narrative: Exam Narrative: condition on discharge: blood pressure 126/60 pulse is 70 afebrile saturating 91% on 2 L nasal cannula lungs clear no wheezing or consolidation with prolonged expiratory phase CV regular rate rhythm no murmurs abdomen soft extremities without edema Discharge Plan Discharge Attending physician on discharge: Virgilio Mi Discharging Clinician: Virgilio Mi Patient Disposition: Home, Self-Care Activity: as tolerated Diet: regular Patient Instructions: Antibiotic Form, Ceftriaxone (By injection), Urinary Tract Infection in Men (DC), Acute Bronchitis (GEN), Hypoxia (GEN) Stand Alone Forms: General Discharge Information Follow-up/Referrals: Stephan Velázquez MD [Physician] - Keep Reg. Scheduled Appt. Discharge Medications: New doxycycline hyclate 100 mg Tablet 100 mg PO Q12HR Qty: 7 RF: 0 ipratropium-albuterol 0.5 mg-3 mg(2.5 mg base)/3 mL solution for nebulization 3 ml INHALATION Q6H PRN (Reason: shortness of breath or wheezing) Qty: 360 RF: 0 prednisone 20 mg tablet 20 mg PO DIRECTED Qty: 8 RF: 0
[2019-04-11 22:28] LABS: Albumin 3.1 g/dL (3.8-4.8); Alpha 1 Globulin 0.5 g/dL (0.2-0.3); Alpha 2 Globulin 0.7 g/dL (0.5-0.9); Beta 1 Globulin 0.4 g/dL (0.4-0.6); Gamma Globulin 1.2 g/dL (0.8-1.7); Protein, Total 6.3 g/dL (6.1-8.1)
== END 2019-04-09 12:55 | disposition home or self-care (01) | DRG 189 ==
LOC: ANHED 22:13 → ANH3MED 22:19
PROVIDERS: Admitting Provider Family Medicine; Emergency Provider Emergency Medicine; Visit Provider Internal Medicine
DX: J96.01 Acute respiratory failure with hypoxia (principal); C66.1 Malignant neoplasm of right ureter; I12.9 Hypertensive chronic kidney disease with stage 1 through stage 4 chronic kidney disease, or unspecified chronic kidney disease; Z79.899 Other long term (current) drug therapy; J44.9 Chronic obstructive pulmonary disease, unspecified; D63.1 Anemia in chronic kidney disease; N18.3 Chronic kidney disease, stage 3 (moderate); D64.81 Anemia due to antineoplastic chemotherapy; M19.90 Unspecified osteoarthritis, unspecified site; I25.10 Atherosclerotic heart disease of native coronary artery without angina pectoris; Z98.41 Cataract extraction status, right eye; Z98.42 Cataract extraction status, left eye; F32.9 Major depressive disorder, single episode, unspecified; K21.9 Gastro-esophageal reflux disease without esophagitis; E78.00 Pure hypercholesterolemia, unspecified; Z85.46 Personal history of malignant neoplasm of prostate; Z90.79 Acquired absence of other genital organ(s); T45.1X5A Adverse effect of antineoplastic and immunosuppressive drugs, initial encounter; R82.81 Pyuria
CPT/HCPCS: 36415; 36430; 71046; 78582; 80048; 80053; 81001; 82607; 82728; 83540; 83550; 83605; 83615; 83880; 84155; 84165; 84484; 85025; 85046; 85610; 85730; 86850; 86900; 86901; 86923; 87040; 87070; 87086; 87205; 87804; 93005; 94618; 94640; 96361; 96365; 96374; 96376; 99285; A9270; A9540; A9558; C8929; G0378; J0696; J1650; J2920; J7030; J7050; P9016; Q9957

== ENCOUNTER 2019-05-23 11:50 | Outpatient (RCR) | payer MEDICARE, MEDICAID, SELFPAY ==
[2019-05-23] MEDS: ACETAMINOPHEN 325 MG TABLET 650 MG PO (14:09)
[2019-05-23 14:40] VITALS: BP 121/60; PULSE 62; RESP 14; TEMP 37.2; O2SAT 92
[2019-05-23 15:20] VITALS: BP 129/67; PULSE 65; RESP 14; TEMP 35.9; O2SAT 94
== END 2019-08-21 23:59 | disposition home or self-care (01) ==
LOC: ANHCPCTRAN 11:50
PROVIDERS: Visit Provider Internal Medicine Hematology & Oncology
DX: D61.810 Antineoplastic chemotherapy induced pancytopenia (principal); C61 Malignant neoplasm of prostate
CPT/HCPCS: 36415; 36430; 80048; 86850; 86900; 86901; P9036; A9270

== ENCOUNTER 2019-06-18 10:36 | Outpatient (CLI) | payer MEDICARE, MEDICAID, SELFPAY ==
--- NOTE | ~2019-06-18 | CT_ITS ---
EXAMINATION: CT chest abdomen pelvis wo con EXAM DATE: 06/18/2019 11:24 INDICATION: Right ureteral cancer. TECHNIQUE: Spiral CT of the chest, abdomen and pelvis was performed without contrast. Axial, bowser l and sagittal images were reviewed. Coronal maximum intensity pixel images of chest reviewed. The dose-length product (DLP) for this examination was 519.30 mGy-cm. The exposure was tailored accordin g to patient size (auto mA exposure control), and iterative reconstruction (ASIR) was used as additio nal dose reduction technique. Comparison is made to prior examination from 05/15/2018. Correlation was made with PET/CT 10/26/2018. FINDINGS: CHEST: There is a left-sided Chemo-Port. There is moderate emphysema. Mild bronchiectasis and hyperi nflation. There are no pleural or pericardial effusions. Tracheobronchial tree is patent. There is no mediastinal, hilar or axillary lymphadenopathy. There is no pneumothorax. Heart normal in s ize. There is moderate coronary arterial calcification, arterial sclerosis. ABDOMEN PELVIS: There is a right adrenal gland lesion measuring 2.6 cm, unchanged, an adenoma. There are gallstones within an otherwise unremarkable gallbladder. No evidence of obstructive biliary dis ease. Severe left renal atrophy. No right-sided hydronephrosis. Surgical changes in the pelvis again noted. Previously seen right ureteral stent has been removed. Patient has likely had prostatectomy. Small left inguinal fat-containing hernia. The bladder is unremarkable. There is no retroperitonea l or pelvic lymphadenopathy. There is moderate scattered arteriosclerotic disease. The appendix is normal. The stomach and small bowel are unremarkable. There is extensive sigmoid, mo derate descending colonic diverticulosis. There is no adjacent inflammatory change to suggest divert iculitis. No free intraperitoneal gas. There are no osteoblastic or osteolytic lesions identified. IMPRESSION: 1. Stable exam without suspicious chest, abdomen or pelvis findings. 2. Moderate emphysema, mild bronchiectasis and hyperinflation. 3. Extensive sigmoid diverticulosis. 4. Other chronic findings. Reviewed, dictated and finalized at location B.
== END 2019-06-18 10:37 | disposition home or self-care (01) ==
LOC: ANHIMG 10:42
PROVIDERS: Visit Provider Internal Medicine Hematology & Oncology
DX: C66.1 Malignant neoplasm of right ureter (principal); J43.9 Emphysema, unspecified; K57.30 Diverticulosis of large intestine without perforation or abscess without bleeding
CPT/HCPCS: 71250; 74176

== ENCOUNTER 2019-09-26 21:31 | Emergency (ER) | payer MEDICARE, MEDICAID, SELFPAY ==
--- NOTE | ~2019-09-26 | XR_ITS ---
EXAMINATION: XR chest 1V portable INDICATION: Shortness of breath and fever TECHNIQUE: Portable AP chest at 2158 hours COMPARISON: 04/05/2019 FINDINGS: There are minimal opacities of the lung bases. The lungs are hyperinflated. There is no ple ural effusion or pneumothorax. The cardiomediastinal silhouette is normal. There is a Port-A-Cath of the left chest wall. The catheter is fractured as it passes below the clavicle and the distal portion of the catheter has migrated to the right heart. IMPRESSION: 1. Minimal airspace opacities of the lung bases, consistent with atelectasis versus pneumonia. 2. Fractured Port-A-Cath with migration of the distal catheter fragment into the right heart. Recomme nd interventional radiologic evaluation for catheter removal. These findings and recommendations were discussed with Dr. Red Villeda MD in the Emergency Department at 2206 hours on 09/26/2019. Reviewed, dictated and finalized at location A. IMPRESSION: 1. Minimal airspace opacities of the lung bases, consistent with atelectasis ve rsus pneumonia. 2. Fractured Port-A-Cath with migration of the distal catheter fragment into th e right heart. Recommend interventional radiologic evaluation for catheter jerzy oumou. These findings and recommendations were discussed with Dr. Red call MD in the Emergency Department at 2206 hours on 09/26/2019.
[2019-09-26 21:32] VITALS: BP 143/89; PULSE 83; RESP 20; O2SAT 94
--- NOTE | 2019-09-26 21:39 | ECG_ITS ---
Measurements Intervals [place] Rate: 75 P: 57 W[place]: 178 QRS: 4 QRSD: 101 T: 50 QT: 366 QTc: 410 Interpretive Statements SINUS RHYTHM DELAYED PRECORDIAL R/S TRANSITION BASELINE ARTIFACT- V6 BORDERLINE ECG Electronically Signed On 09-27-2019 8:04:22 CDT by Petey Jackson D.O.
--- NOTE | 2019-09-26 21:41 | ED.FEVER ---
HPI - Fever General Chief Complaint: Shortness of Breath/Dyspnea <Red Villeda MD - Last Filed: 09/30/19 10:05> Stated Complaint: n/v/, sob <Red Villeda MD - Last Filed: 09/30/19 10:05> Time Seen by Provider: 09/26/19 21:37 <Red Villeda MD - Last Filed: 09/30/19 10:05> History of Present Illness HPI Narrative: He reports that he has not been feeling well for the past 2 weeks. He has had intermittent fever up to 101. He also has nausea and vomiting. Additionally c/o shortness of breath on exertion. He reports that he has had 2 similar episodes in the past. At least one of those times he was hospitalized, he is not sure what the cause was. <Red Villeda MD - Last Filed: 09/30/19 10:05> Related Data Home Medications: Home Medications Medication Instructions Recorded Confirmed albuterol sulfate [ProAir HFA] 2 puff INHALATION QID PRN 12/20/18 04/11/19 amlodipine 5 mg PO DAILY 12/20/18 04/11/19 atenolol 100 mg PO DAILY 12/20/18 04/11/19 hydroxyzine HCl 10 mg PO QID PRN 12/20/18 04/11/19 omeprazole 20 mg PO BID 12/20/18 04/11/19 rosuvastatin 10 mg PO DAILY 12/20/18 04/11/19 venlafaxine 75 mg PO BID 12/20/18 04/11/19 calcipotriene 1 applic TOPICAL BID PRN 04/05/19 04/11/19 aspirin 81 mg PO DAILY 04/06/19 04/11/19 <Red Villeda MD - Last Filed: 09/30/19 10:05> Allergies/Adverse Reactions: Allergies Allergy/AdvReac Type Severity Reaction Status Date / Time lisinopril Allergy Mild Rash Verified 09/26/19 21:37 tramadol Allergy Mild Rash Verified 09/26/19 21:37 codeine Allergy Unknown Nausea Verified 09/26/19 21:37 <Red Villeda MD - Last Filed: 09/30/19 10:05> Review of Systems Review of Systems: All systems reviewed & are unremarkable except as noted in HPI and below <Red Villeda MD - Last Filed: 09/30/19 10:05> Constitutional: Constitutional: Reports fatigue and Reports fever(s) <Red Villeda MD - Last Filed: 09/30/19 10:05> ENT: Denies sore throat <Red Villeda MD - Last Filed: 09/30/19 10:05> Cardiovascular: Cardiovascular: Denies chest pain <Red Villeda MD - Last Filed: 09/30/19 10:05> Respiratory: Respiratory: Denies cough and Reports dyspnea <Red Villeda MD - Last Filed: 09/30/19 10:05> Gastrointestinal: Gastrointestinal: Denies abdominal pain, Reports nausea and Reports vomiting <Red Villeda MD - Last Filed: 09/30/19 10:05> Genitourinary: Genitourinary: Denies dysuria <Red Villeda MD - Last Filed: 09/30/19 10:05> Neurologic: Denies focal weakness and Denies numbness <Red Villeda MD - Last Filed: 09/30/19 10:05> [facility] Past Medical History Medical History: Medical History Arthritis Asthma CAD (coronary artery disease) Cataracts, bilateral Depression GERD (gastroesophageal reflux disease) H/O: HTN (hypertension) Herniated disc Hypercholesteremia Prostate CA Ureter cancer <Red Villeda MD - Last Filed: 09/30/19 10:05> Surgical History Surgical History: Surgical History H/O prostatectomy History of cystoscopy Hx of bilateral cataract extraction Hx of cardiac cath <Red Villeda MD - Last Filed: 09/30/19 10:05> Family History Family History: Family History Father Acute myocardial infarction Hypertension Prostate carcinoma Mother Cerebrovascular accident Congestive heart failure Hypertension Sibling Lung cancer <Red Villeda MD - Last Filed: 09/30/19 10:05> Social History Social History: Social History Smoking packs per day: 2.5 Smoking cigarettes per day: 50.0 Years smoked: 27 Smoking pack-years: 67.50 Smoking status: Former smoker Second hand tobacco smoke expo
[2019-09-26 21:45] VITALS: TEMP 37.8
[2019-09-26] MEDS: SODIUM CHLORIDE 0.9% IV 500 ML 999 ML IV CONT (21:49)
--- NOTE | 2019-09-26 21:56 | PC.NURSE ---
pt presents to ER via EMS with c/o SOB, weakness, fever, cough, N/V x2 weeks. t-max 101. pt states he has been taking Tylenol Q4 hours. EMS reports pt SaO2 was 80's upon their arrival, pt was placed on 2L NC. Upon arrival pt SaO2 85% on RA. pt states he wears oxygen with activity. denies any sick contacts. pt states, I get sick like this every year.
[2019-09-26 21:58] LABS: Basophils Percent Auto 0.1 % (0.2-1.2); Eosinophils Percent Auto 0.1 % (0-4.4); Hematocrit 38.7 % (42.0-52.0); Hemoglobin 12.6 g/dL (14.0-18.0); Immature Granulocyte Absolute 0.02 K/mm3 (0.00-0.031); Immature Granulocyte Percent A 0.1 % (0-0.5); Immature Platelet Fraction Pct 3.3 % (0.9-11.2); Lymphocytes Absolute Auto 2.73 K/mm3 (0.9-3.2); Lymphocytes Percent Auto 19.9 % (18.3-44.2); Mean Corpuscular HGB Conc 32.6 g/dl (32-36); Mean Corpuscular Hemoglobin 28.4 pg (26-34); Mean Corpuscular Volume 87.4 fl (80-100); Mean Platelet Volume 11.1 fl (7.4-10.4); Monocytes Absolute Auto 1.9 K/mm3 (0.1-0.6); Neutrophils Percent Auto 65.8 % (45.5-73.1); Platelet Count Result 144 k/mm3 (150-375); Red Blood Count 4.43 M/mm3 (4.6-6.20); Red Cell Distribution Width 14.1 % (11.5-14.5); White Blood Count 13.7 K/mm3 (4.5-10.0)
[2019-09-26 22:07] LABS: Lactic Acid Reflex 1.9 mmol/L (0.7-2.1)
[2019-09-26 22:10] LABS: Prothrombin Time 12.9 Seconds (11.1-14.7)
[2019-09-26 22:16] LABS: Alanine Aminotransferase 13 U/L (4-50); Albumin Level 4.2 g/dL (3.5-5.1); Alkaline Phosphatase 78 U/L (38-126); Anion Gap 17.9 mmol/L (7-16); Aspartate Amino Transferase 22 U/L (17-59); Bilirubin,Total 0.6 mg/dL (0.2-1.3); Blood Urea Nitrogen 51 mg/dL (9-20); Calcium 9.1 mg/dL (8.4-10.2); Carbon Dioxide 23 mmol/L (22-30); Chloride 97 mmol/L (98-107); Estimated CRCL calculation 18 ml/min; Estimated Glomerular Filt Rate 19; Glucose 129 mg/dL (75-110); Potassium 3.9 mmol/L (3.4-5.0); Sodium 134 mmol/L (137-145)
[2019-09-26 22:21] LABS: CRP 25.1 mg/dL (<1.0)
[2019-09-26 23:36] VITALS: BP 113/50; PULSE 66; RESP 18; O2SAT 95
[2019-09-27] VITALS (11 sets, daily range): BP systolic 90–142; BP diastolic 48–88; PULSE 58–107; RESP 14–23; TEMP 37.2; O2SAT 95–100
[2019-09-27 00:32] LABS: Add Urine Microscopic? YES; Appearance Urine Clear (Clear); Bacteria Urine Trace /hpf; Bilirubin Urine Negative (Negative); Blood Urine 2+ (Negative); Color Urine Straw (Yellow); Glucose Urine UA Negative (Negative); Ketones Urine Negative (Negative); Leukocyte Esterase Ur Trace LEU/UL (Negative); Mucus Urine Rare /lpf; Nitrate Urine Negative (Negative); Protein Urine 1+ mg/dL (Negative); Specific Grav Ur 1.014 (1.001-1.035); Urobilinogen Urine Negative mg/dL (<2.0)
[2019-09-27] MEDS: ACETAMINOPHEN 325 MG TABLET 650 MG PO ×2 (04:03→08:31)
--- NOTE | 2019-09-27 04:11 | PC.NURSE ---
pt c/o BLANTON, pt medicated with tylenol at this time. will continue to monitor pt for baseline status changes.
[2019-09-27] MEDS: SODIUM CHLORIDE 0.9% IV 1,000 ML 150 ML IV CONT (05:18)
--- NOTE | 2019-09-27 05:55 | PC.NURSE ---
pt resting comfortably on hospital bed at this time. VS stable, RR even and unlabored, call light in reach.
--- NOTE | 2019-09-27 07:20 | PC.NURSE ---
ASSUMED PT CARE FROM ROMAN LINARES AT THIS TIME, PT RESTING, VSS, AWAITING BED NUMBER FROM [facility].
--- NOTE | 2019-09-27 08:00 | PC.NURSE ---
pt awaiting bed assign at [facility], told to expect lengthy wait
--- NOTE | 2019-09-27 08:23 | PC.NURSE ---
PT FIRE TRUCK DRIVER LIGHT, C/O BURNING, ITCHING AND PAIN IN THE L ARM ABOVE THE IV SITE. PT STATES THAT SX BEGAN WHEN THE AZYTHROMYCIN WAS STARTED. RED RASH NOTED ABOVE IV SITE, MEASURING 6X3CM. ERP BALBIR NOTIFIED, AZYTHROMYCIN FINISHED, PER ERP PT WILL TAKE THE MEDICATION ORALLY INSTEAD OF IV.
--- NOTE | 2019-09-27 08:27 | PC.NURSE ---
VERBAL ORDER FROM CLAUDIO MARCUSK TO GIVE 650 MG PO STAT, ORDER PLACED, INQUIRED ABOUT BENADRYL, CLAUDIO STATES THAT SHE THINKS IT IS MORE OF AN IRRITATION THAN AN ALLERGIC REACTION AND DOES NOT WANT BENADRYL.
--- NOTE | 2019-09-27 08:57 | PC.NURSE ---
REPORT GIVEN TO ROMAN CANTU AT THIS TIME, HE HAS ASSUMED PT CARE.
[2019-09-27 10:55] LABS: SARS-CoV-2 RNA PCR Negative
--- NOTE | 2019-09-27 11:48 | PC.NURSE ---
no bed at this time, awaiting assignment will call hourly
--- NOTE | 2019-09-27 12:45 | PC.NURSE ---
Michela called to ask about patients COVID results. I told them that they were negative. She said we still have no beds, but we will call you back .
--- NOTE | 2019-09-27 12:45 | PC.NURSE ---
pt noted to have increased HR, pt denied change in condition, denied pain vs taken. 105, 99%, 17R, 90/65
--- NOTE | 2019-09-27 12:50 | PC.NURSE ---
Masood OWENS asked Dr. Castro to go in an evaluate the patient.
--- NOTE | 2019-09-27 12:52 | PC.NURSE ---
asked dr ortiz to see the pt, related to change in HR and BP came out and asked me to feed the pt.
--- NOTE | 2019-09-27 13:53 | PC.NURSE ---
ALONDRA LAL UPDATED ON COVID RESULTS. STILL NO BED AT THIS TIME
--- NOTE | 2019-09-27 14:16 | PC.NURSE ---
accepted to [facility] [id number]
== END 2019-09-27 15:05 | disposition short-term general hospital (02) ==
PROVIDERS: Emergency Medicine; Emergency Provider Emergency Medicine
DX: Z20.828 Contact with and (suspected) exposure to other viral communicable diseases (principal); T82.9XXA Unspecified complication of cardiac and vascular prosthetic device, implant and graft, initial encounter; N39.0 Urinary tract infection, site not specified; R00.0 Tachycardia, unspecified; Z87.891 Personal history of nicotine dependence; M19.90 Unspecified osteoarthritis, unspecified site; J45.909 Unspecified asthma, uncomplicated; I25.10 Atherosclerotic heart disease of native coronary artery without angina pectoris; F32.9 Major depressive disorder, single episode, unspecified; K21.9 Gastro-esophageal reflux disease without esophagitis; I10 Essential (primary) hypertension
CPT/HCPCS: 36415; 71045; 80053; 81001; 83605; 85025; 85055; 85610; 85730; 86140; 87040; 87077; 87086; 87088; 87635; 93005; 96361; 96365; 96367; 99285; A9270; C9803; J0456; J0696; J7030; J7040; U0003

== ENCOUNTER 2019-10-29 13:08 | Outpatient (CLI) | payer MEDICARE, MEDICAID, SELFPAY ==
--- NOTE | ~2019-10-29 | CT_ITS ---
EXAMINATION: CT abdomen pelvis wo con DATE: 10/29/2019 13:38 INDICATION: Ureteral cancer. TECHNIQUE: Computed tomography (CT) of the abdomen and pelvis was performed without intravenous contr ast. The dose-length product was 407.66 mGy-cm. Automated exposure control and iterative reconstructi on technique were employed. COMPARISON: CT dated 06/18/2019 FINDINGS: Heart size is normal. There is emphysema. Heart size normal. No significant pleural or kathi cardial effusion. There is diffuse atherosclerosis without evidence for aneurysm. There are fat-conta ining bilateral inguinal hernias. Colonic diverticulosis without evidence for diverticulitis. There are multiple hypodense lesions of both hepatic lobes. These were not definitely visualized on p rior examination, concerning for metastatic disease. There is a severely atrophic left kidney. There is irregularity to the right renal contour, although evaluation for mass limited without contrast. There are gallstones. There are prostatectomy changes. Bladder wall is thickened, likely due to underdistention. No lymphadenopathy. Moderate lumbar spondyl osis. There is grade 1 degenerative spondylolisthesis at L4-5. There is a 2.8 cm right adrenal mass with macroscopic areas of fat, likely benign adenoma or adrenal myolipoma. IMPRESSION: 1. Multiple new hypodense liver masses, most likely metastases. Consider correlation with pet/CT scan for further assessment. 2: 2.8 cm right adrenal mass, most likely benign. 3: Emphysema. Reviewed, dictated and finalized at location A. IMPRESSION: 1. Multiple new hypodense liver masses, most likely metastases. Consider correl ation with pet/CT scan for further assessment. 2: 2.8 cm right adrenal mass, most likely benign. 3: Emphysema.
== END 2019-10-29 13:09 | disposition home or self-care (01) ==
PROVIDERS: Visit Provider Internal Medicine Hematology & Oncology
DX: C66.1 Malignant neoplasm of right ureter (principal); J43.9 Emphysema, unspecified; K76.89 Other specified diseases of liver
CPT/HCPCS: 74176

== ENCOUNTER 2019-12-04 13:30 | Outpatient (CLI) | payer MEDICARE, MEDICAID, SELFPAY ==
--- NOTE | ~2019-12-04 | PE_ITS ---
EXAMINATION: PET skull to mid thigh DATE: 12/04/2019 15:25 INDICATION: Right ureteral cancer. TECHNIQUE: Blood glucose level was 106 mg/dL. 10.492 mCi of 18-fluorodeoxyglucose (18-FDG) was admini stered i.v. Low dose computed tomography (CT) images were acquired from the base of the brain to the proximal thighs for attenuation correction and anatomic localization. Automated exposure control was employed. Dose-length product (DLP) was 570 mGy-cm. Positron emission tomography (PET) images were ac quired in the same distribution. COMPARISON: CT abdomen and pelvis 10/29/2019, PET/CT 10/26/2018 FINDINGS: Head/neck: There is a mucous retention cyst in left maxillary sinus. There is increased activity in t he oropharynx and glottis without CT correlate, likely physiologic. There are no pathologically enlar ged lymph nodes. Chest: There is moderate emphysema. There is mild atelectasis bilaterally. No pleural effusion. The h eart size is normal. There are coronary artery calcifications. No pericardial effusion. There are no pathologically enlarged lymph nodes. There is a left subclavian port with tip in superior vena cava. Abdomen/pelvis/proximal thighs: There are greater than 10 scattered masses in the liver measuring up to 2.8 cm with increased activity. There are gallstones in the gallbladder, which is normal in size. The spleen, pancreas, and left adrenal gland are normal. There is a 2.8 cm mass in right adrenal glan d containing foci of macroscopic fat without increased activity, consistent with a myelolipoma. Right kidney is normal. There is severe atrophy of left kidney. There is a left inguinal hernia containing fat. There are changes of prostatectomy and pelvic lymph node dissection. There is diverticulosis of the colon without evidence of diverticulitis. There are no dilated loops of bowel. The appendix is n ormal. There is a small sliding hiatal hernia. There is no osseous malignancy. IMPRESSION: 1. Liver masses with increased activity, consistent with metastatic disease. Consider ultrasound-guid ed core needle biopsy. Reviewed, dictated and finalized at location A. IMPRESSION: 1. Liver masses with increased activity, consistent with metastatic disease. Co nsider ultrasound-guided core needle biopsy.
[2019-12-04 13:54] LABS: Glucose Point of Care 106 (65-105)
== END 2019-12-04 13:31 | disposition home or self-care (01) ==
PROVIDERS: Visit Provider Internal Medicine Hematology & Oncology
DX: C66.1 Malignant neoplasm of right ureter (principal)
CPT/HCPCS: 78815; A9552

== ENCOUNTER 2019-12-14 02:36 | Outpatient (CLI) | payer MEDICARE, MEDICAID, SELFPAY ==
[2019-12-14 23:12] LABS: SARS-CoV-2 RNA PCR Negative
== END 2019-12-14 02:37 | disposition home or self-care (01) ==
LOC: ANHCOVIDDT 02:37
PROVIDERS: Visit Provider Surgery
DX: Z01.812 Encounter for preprocedural laboratory examination (principal); Z20.828 Contact with and (suspected) exposure to other viral communicable diseases
CPT/HCPCS: 87635; C9803; U0003

== ENCOUNTER 2019-12-14 09:20 | Outpatient (CLI) | payer MEDICARE, MEDICAID, SELFPAY ==
[2019-12-14 09:55] LABS: Prothrombin Time 13.3 Seconds (11.1-14.7)
== END 2019-12-14 09:21 | disposition home or self-care (01) ==
LOC: ANHSURGERY 09:23
PROVIDERS: Visit Provider Surgery
DX: Z01.818 Encounter for other preprocedural examination (principal); C66.9 Malignant neoplasm of unspecified ureter
CPT/HCPCS: 36415; 85610; 85730; 87635; C9803; U0003

== ENCOUNTER 2019-12-17 00:27 | Day surgery (SDC) | payer MEDICARE, MEDICAID, SELFPAY ==
[2019-12-13 11:50] VITALS: BMI 25.7
--- NOTE | ~2019-12-17 | XR_ITS ---
EXAMINATION: XR fl guide central line place INDICATION: Port-A-Cath insertion TECHNIQUE: A single intraoperative fluoroscopic image is submitted for review. Total fluoroscopic lorrie e is 17.3 seconds. The DAP is [id number]. COMPARISON: None available FINDINGS: Fluoroscopic image demonstrates the tip of a central venous catheter in the superior vena c lucian. Please refer to procedure note for full details. IMPRESSION: 1. Port-A-Cath tip in the superior vena cava. Please refer to procedure note for full details. Reviewed, dictated and finalized at location [facility]. IMPRESSION: 1. Port-A-Cath tip in the superior vena cava. Please refer to procedure note fo r full details.
--- NOTE | ~2019-12-17 | XR_ITS ---
EXAMINATION: XR chest port-a-cath/central DATE: 12/17/2019 08:47 INDICATION: Port placement. TECHNIQUE: A single frontal view of the chest was obtained. COMPARISON: Chest single view 09/26/2019 FINDINGS: The left lateral costophrenic angle is excluded. There is no pneumonia, pleural effusion, o r pneumothorax. The heart size is normal. There is a right internal jugular port with tip in superior vena cava. IMPRESSION: 1. Port tip in superior vena cava. Reviewed, dictated and finalized at location [facility].
--- NOTE | 2019-12-17 06:46 | P.PNAN_ITS ---
Anes - Initial Pre Proc Eval Procedure: Operation Date: 12/17/19 07:30 Proposed Procedures p Insertion Misha Cath - Christopher Taylor MD Date/Time: 12/17/19 06:46 Surgeon: Christopher Taylor MD Pre Op Diagnosis: Ureteral Ca Patient Data Age: 74 Gender: M Height: 5 ft 9 in Weight: 79 kg Allergies Allergy/AdvReac Type Severity Reaction Status Date / Time lisinopril Allergy Mild Rash Verified 12/13/19 11:45 tramadol Allergy Mild Rash Verified 12/13/19 11:45 codeine Allergy Unknown Nausea Verified 12/13/19 11:45 Home Medications Medication Instructions Recorded Confirmed Type albuterol sulfate [ProAir HFA] 2 puff INHALATION QID PRN 12/20/18 12/17/19 History amlodipine 5 mg PO QAM 12/20/18 12/17/19 History atenolol 100 mg PO HS 12/20/18 12/17/19 History hydroxyzine HCl 10 mg PO QID PRN 12/20/18 12/17/19 History omeprazole 20 mg PO BID 12/20/18 12/17/19 History rosuvastatin 10 mg PO DAILY 12/20/18 12/17/19 History venlafaxine 75 mg PO BID 12/20/18 12/17/19 History calcipotriene 1 applic TOPICAL BID PRN 04/05/19 12/13/19 History Patient hx anesthesia problems: none Family hx anesthesia problems: none PMFSH Past Medical History Medical History Arthritis Asthma CAD (coronary artery disease) Cataracts, bilateral Depression GERD (gastroesophageal reflux disease) H/O: HTN (hypertension) Herniated disc Hypercholesteremia Prostate CA Ureter cancer Surgical History Surgical History H/O prostatectomy History of cystoscopy Hx of bilateral cataract extraction Hx of cardiac cath Family History Family History Father Acute myocardial infarction Hypertension Prostate carcinoma Mother Cerebrovascular accident Congestive heart failure Hypertension Sibling Lung cancer Social History Social History Smoking packs per day: 2.5 Smoking cigarettes per day: 50.0 Years smoked: 27 Smoking pack-years: 67.50 Smoking status: Former smoker Tobacco type: cigarettes Second hand tobacco smoke exposure: Yes Additional smoking assessment comments: STATES 2 1/2PKS/DAY/20+YRS QUITE 30 YRS AGO Alcohol intake: former Alcohol use details: QUIT YEARS AGO Substance use: never Substance use type: does not use Living arrangements: alone Gender identity (if verbalized by the patient): Male Spiritual care concerns: No Agree to blood products: Yes Anes - Eval Final PreProcedure Day of Procedure 12/17/19 06:46 Patient weight: normal Heart: regular rate and rhythm Lungs: decreased breath sounds Airway: Mallampati scale class II Neurological: alert and oriented Last oral intake: >/= 8 hours ASA classification: IV Emergent: no Anesthetic plan: proceed Anesthesia type and monitoring: general GIVS and standard monitoring Informed Consent: The patient's anesthetic plan and its attendant risks and be nefits were discussed with the patient/family/POA. Questions were solicited and answers provided to the satisfaction of the patient/family/POA.
[2019-12-17] MEDS: LACTATED RINGERS 1,000 ML 30 ML IV CONT (06:54)
--- NOTE | 2019-12-17 07:14 | PM.HPGS ---
History of Present Illness History of Present Illness Consent: Risks, benefits, and alternatives of placement of a Port-A-Cath have been discussed and questions answered. Patient agrees to proceed with procedure. 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 Patient has already undergone chemotherapy which ended her earlier this year. However, a recent CT scan and subsequent CIS PET scan confirmed new lesions within the liver considered to be metastasis or other work, Dr. Aric hill is planning to proceed with immunotherapy and the patient needs a Port-A-Cath for same. He would like to proceed. The relates that he did previously have a port, but that a piece fracture and had to be extracted by vascular percutaneous technique about 5 mo. ago. Review of Systems Constitutional: Constitutional: Reports no additional constitutional complaints, Reports fatigue and Denies malaise Eyes: Eyes: Denies change in vision and Denies loss of vision ENT: Reports Normal hearing present, Denies change in voice, Denies dizziness, Denies hoarseness and Denies sore throat Cardiovascular: Cardiovascular: Denies chest pain, Denies leg edema and Denies dyspnea Comments: History of hypertension and hyperlipidemia Respiratory: Respiratory: Denies cough, Denies dyspnea and Denies wheezing Gastrointestinal: Gastrointestinal: Denies hematochezia, Denies change in bowel habits and Denies heartburn Comments: history of GERD Genitourinary: Genitourinary: Denies urinary frequency and Denies urinary incontinence Comments: History of prostate cancer treated with resection and subsequent radiation treatment to the pelvis in 2011 in 2012. History of this cover rib distal ureteral cancer with subsequent excisional removal on August 31, 2018 with positive margins. The patient underwent chemotherapy with cisplatin BrandCont engine Alberto are for finishing chemotherapy June 08, 2019. History of Chronic kidney disease type III Neurologic: Reports Normal hearing present, Denies confusion, Denies dizziness, Denies loss of vision, Denies memory loss and Denies seizure-like activity Psychiatric: Psychiatric: Denies confusion, Denies depression and Denies memory loss Endocrine: Endocrine: Denies cold intolerance and Reports fatigue Hematologic/Lymphatic: Hematologic/Lymphatic: Denies easy bleeding and Denies easy bruising Comments: Patient had some chemotherapy affects on his blood counts but these have improved and most recent platelet count was greater than 100,000. Allergic/Immunologic: Allergic/Immunologic: Denies wheezing [facility] Past Medical History Medical History Arthritis Asthma CAD (coronary artery disease) Cataracts, bilateral Depression GERD (gastroesophageal reflux disease) H/O: HTN (hypertension) Herniated disc Hypercholesteremia Prostate CA Ureter cancer Surgical History Surgical History H/O prostatectomy History of cystoscopy Hx of bilateral cataract extraction Hx of cardiac cath Family History Family History Father Acute myocardial infarction Hypertension Prostate carcinoma Mother Cerebrovascular accident Congestive heart failure Hypertension Sibling Lung cancer Social History Social History Smoking packs per day: 2.5 Smoking cigarettes per day: 50.0 Years smoked: 27 Smoking pack-years: 67.50 Smoking status: Former smoker Tobacco type: cigarettes Second hand tobacco smoke exposure: Yes Additional smoking assessment comments: STATES 2 1/2PKS/DAY/20+YRS QUITE 30 YRS AGO Alcohol intake: former Alcohol use details: QUIT YEARS AGO Substance us
--- NOTE | 2019-12-17 07:27 | WPDHPUPDATE1 ---
History and Physical Update Update Date/Time: 12/17/19 07:27 History and Physical has been reviewed, including an updated exam of the patient. There are NO changes in the patient's condition. Risks, benefits, and alternatives have been discussed and questions answered. Patient agrees to proceed with procedure.
[2019-12-17] MEDS: KETOROLAC 15 MG/ML VIAL (*BKC) IV PUSH (07:28)
[2019-12-17] MEDS: ceFAZolin 2 GM/D5W 50 ML 2 GM/50 ML BAG IVPB (07:32)
[2019-12-17 07:36] VITALS: BP 150/74; PULSE 65; TEMP 37; O2SAT 94
[2019-12-17 07:39] LABS: Partial Thromboplastin Time 37.5 SECONDS (22.3-36.8)
[2019-12-17] MEDS: BUPIVACAINE/EPINEPHRINE 0.5% 10 ML VIAL 20 ML INFILTRATE (07:42)
[2019-12-17] MEDS: HEPARIN SODIUM 5,000 UNITS/ML VIAL 5000 UNITS IRRIGATION (07:43)
[2019-12-17 08:29] VITALS: BP 95/55; PULSE 65; RESP 16; O2SAT 95
--- NOTE | 2019-12-17 08:38 | PM.PROC ---
Procedure Note - Detailed Date of procedure: 12/17/19 Pre-op diagnosis: Ureteral Ca Post-op diagnosis: same Procedure performed: US guided placement of Port-A-Cath Description of procedure: Patient was seen and marked in the pre-op area prior to coming to the OR. Patient was brought to the operating room. He was placed supine on the operating table and general IV sedation was induced. The nurse bridal stylist sales consultant provided oxygen and IV sedation. Patient's head was carefully turned to the left side while in the supine position and the patient's entire neck and anterior chest on both sides was prepped and draped in the usual sterile fashion. Following this the appropriate time-out was completed confirming procedure and patient. We confirmed that all the needed equipment was present in the room. Following this the ultrasound probe was draped into the field and using the probe we carefully identified the carotid artery and jugular vein on the right neck. It appeared that normal anatomy was present. I was unable to document this this date with a visual record in [employer] due to using the older of the 2 ultrasound machines. However ultrasound was interval and allowing me to cannulate the right jugular vein without surrounding injury. I marked the skin directly over the Rt. internal jugular vein. Following this, using the continuous ultrasound guidance, a Cook needle was placed through the skin into this vein. I then was able to draw back good dark blood. Once this was completed a guidewire using a J-tip was advanced through the needle and then the needle and the guidewire cover were withdrawn. C-arm fluoroscopy was used to confirm that the guidewire was nicely in the venous system. Once this was confirmed with the C - arm I preceded on by making the pocket for the port on the patient's anterior right chest approximately 3 centimeters below the clavicle overlying the chest wall. Local anesthetic was infiltrated into the skin where there was a transverse incision marked out. Incision was made and we made a pocket inferior to the incision with just a little dissection superior. The low-profile port was tried in the pocket and seemed to fit well. Following this the catheter which had been placed on a tunneling device was tunneled from the port site on the anterior right chest up to the right neck where a small incision had been made with an #11 blade knife. Then the catheter was pulled through so that we would have 15 centimeters to put into the central venous system once the dilation took place. Following this we placed the dilator and sheath over the guidewire in the jugular vein and carefully dilated the tract into the central venous system. The guidewire and dilator were then removed, carefully covering the end of the sheath to prevent air embolus. The end of the catheter which had been cut off straight across and the tip checked was then inserted into the sheath and into the neck. I then carefully pulled the 2 arms of the tear-away sheath away as the assistant superintendent held the catheter in position with a DeBakey forceps. Following this we checked the position of the catheter with C-arm fluoroscopy confirming that the tip seemed to be in the distal superior vena cava near the junction with the right atrium. I felt that it was in good position and so the rest of the catheter was pulled down toward the feet into the port site. We then measured to the appropriate position to cut the catheter to attach it to the port stem. Then the connector sealing device for the catheter port was placed onto the catheter and then the catheter cut to the appropriate length and inserted onto the stem of the port. Then the connector was advanced onto the stem over the catheter sealing it to the port. A single 3- 0 Prolene suture was also used during this to suture the connector to the port and to the underlying musculature. Following this at one other site the port was sutured to the underlying mu
[2019-12-17 09:00] VITALS: BP 122/69; PULSE 62; RESP 14; O2SAT 93
[2019-12-17 09:25] VITALS: BP 122/65; PULSE 58; RESP 14; O2SAT 95
--- NOTE | 2019-12-17 10:22 | SUR.PHASEII ---
[address] chest [address] and dr mcguire saw results,okayed for discharge.
== END 2019-12-17 09:39 | disposition home or self-care (01) ==
PROVIDERS: Referring Provider Internal Medicine Hematology & Oncology; Visit Provider Surgery
PROC: (CPT 36561; principal; 2019-12-17 07:30)
DX: C66.9 Malignant neoplasm of unspecified ureter (principal); I10 Essential (primary) hypertension; I25.10 Atherosclerotic heart disease of native coronary artery without angina pectoris; J45.909 Unspecified asthma, uncomplicated; E78.00 Pure hypercholesterolemia, unspecified; K21.9 Gastro-esophageal reflux disease without esophagitis; F32.9 Major depressive disorder, single episode, unspecified; Z87.891 Personal history of nicotine dependence
CPT/HCPCS: 36561; 36415; 77001; 85730; C1788; J0690; J1644; J1885; J2405; J2704; J3010; J7030; J7120

== ENCOUNTER 2020-03-03 13:57 | Outpatient (CLI) | payer MEDICARE, MEDICAID, SELFPAY ==
--- NOTE | ~2020-03-03 | CT_ITS ---
EXAMINATION: CT abdomen pelvis wo con DATE: 03/03/2020 14:18 INDICATION: Right ureteral cancer TECHNIQUE: Computed tomography (CT) of the abdomen and pelvis was performed without intravenous contr ast. Automated exposure control and iterative reconstruction technique were employed. Exam dose: 534 .34 mGy-cm total exam DLP. COMPARISON: 12/04/2019 PET/CT scan 10/29/2019 CT abdomen pelvis FINDINGS: No consolidation at the lung bases. Normal heart size. No pericardial or pleural effusion. There is extensive metastatic disease throughout the liver, substantially increased in severity since 10/25/2019. Normal splenic size. No splenic or pancreatic or left adrenal mass lesion. Cholelithiasis. No bile duct or pancreatic duct dilatation. 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 Normal left adrenal gland. Severe left renal atrophy. Lobular outline of right kidney. No right renal mass lesion is evident. No ureteral calculus or hydroureteronephrosis. Status post prostatectomy. Urinary bladder is relatively evacuated but otherwise unremarkable. Normal appendix. There is extensive calcification of the abdominal aorta and iliac arteries as well as right renal art marizol. No abdominal aortic aneurysm. No intraperitoneal or retroperitoneal or pelvic mass lesion or kaylee nopathy or ascites. There are numerous diverticula of the sigmoid and descending colon; no CT evidence of diverticulitis. No bowel obstruction, bowel wall thickening, pneumatosis or intraperitoneal free air. Bilateral fat-containing inguinal hernias, larger on the left. There is multilevel degenerative disc disease of the lower thoracic and lumbar spine, most severe at L5-S1. There is associated minimal retrolisthesis at L1-2. There is grade 1 anterolisthesis at L4-5 d ue to degenerative change at the apophyseal joints. No suspicious osteolytic or osteoblastic lesions are noted. IMPRESSION: Extensive hepatic metastatic disease, substantially increased since 10/25/2019 Cholelithiasis Stable 2.8 cm right adrenal adenoma Severe left renal atrophy, chronic Diverticulosis of the colon Reviewed, dictated and finalized at [facility]. Reviewed, dictated and finalized at location [facility]. L OPERATOR HELPER IMPRESSION: Extensive hepatic metastatic disease, substantially increased sinc e 10/25/2019 Cholelithiasis Stable 2.8 cm right adrenal adenoma Severe left renal atrophy, chronic Diverticulosis of the colon
== END 2020-03-03 13:58 | disposition home or self-care (01) ==
PROVIDERS: Visit Provider Internal Medicine Hematology & Oncology
DX: C66.1 Malignant neoplasm of right ureter (principal); K80.20 Calculus of gallbladder without cholecystitis without obstruction; D35.01 Benign neoplasm of right adrenal gland; K57.30 Diverticulosis of large intestine without perforation or abscess without bleeding
CPT/HCPCS: 74176

== ENCOUNTER 2020-05-06 15:25 | Outpatient (CLI) | payer MEDICARE, MEDICAID, SELFPAY ==
--- NOTE | ~2020-05-06 | XR_ITS ---
EXAMINATION: XR chest 2V DATE: 05/06/2020 15:53 INDICATION: Shortness of breath, history of right ureteral cancer TECHNIQUE: PA and lateral views of the chest are obtained. COMPARISON: 12/17/2019 FINDINGS: The lungs are free of acute opacities. A right internal jugular Port-A-Cath ends with its t ip in the midsuperior vena cava. Symmetric nodular appearing opacities projecting over the lower lung zones likely reflect the nipples. There is no pleural effusion or pneumothorax. The cardiomediastina l silhouette is normal. There is mild thoracic spondylosis. IMPRESSION: 1. No acute cardiopulmonary abnormality. Reviewed, dictated and finalized at location A. CLE SAFETY INSPECTOR
== END 2020-05-06 15:26 | disposition home or self-care (01) ==
PROVIDERS: PCP Internal Medicine Hematology & Oncology; Visit Provider Internal Medicine Hematology & Oncology
DX: R06.00 Dyspnea, unspecified (principal)
CPT/HCPCS: 71046

== ENCOUNTER 2020-05-27 06:56 | Outpatient (CLI) | payer MEDICARE, MEDICAID, SELFPAY ==
--- NOTE | ~2020-05-27 | CT_ITS ---
EXAMINATION: CT abdomen pelvis wo con DATE: 05/27/2020 07:37 INDICATION: Right ureteral carcinoma TECHNIQUE: Computed tomography (CT) of the abdomen and pelvis was performed without intravenous contr ast. Automated exposure control and iterative reconstruction technique were employed. Exam dose: 638 .09 mGy-cm total exam DLP. COMPARISON: 12/04/2019 PET/CT scan 03/03/2020 CT abdomen pelvis 06/18/2019 CT abdomen pelvis FINDINGS: Emphysematous changes of the included lower lungs. Stable approximately 7 mm pleura-based n odule in the dome of the right diaphragm. Normal heart size. No pericardial or pleural effusion. Small sliding hiatal hernia. There is interval very prominent hepatic enlargement since prior examinations; the liver is studded w ith metastases of variable size throughout. Probable gallstones. No gallbladder wall thickening or pericholecystic fluid or fat stranding. No bert e duct dilatation. Normal splenic size. No pancreatic mass lesion, calcification or ductal dilatation. 2.5 cm right adrenal mass with minimal calcification, unchanged since 06/18/2019, most consistent with adenoma. Severe diffuse left renal atrophy. Lobular right renal outline is noted, not significantly changed since 06/18/2019. This examination is limited for evaluation of renal masses without the use of the intravenous contrast material. No urina ry tract calculus or hydroureteronephrosis. Mild nonspecific thickening of the urinary bladder wall. There is evidence of prostatectomy. Surgical clips are noted at the posterior aspect of the urinary b ladder bilaterally; seminal vesicles are no longer evident, likely surgically resected. There is extensive abdominal aortic, iliac, superior mesenteric, right renal artery calcification. No abdominal aortic aneurysm. No intraperitoneal or retroperitoneal or pelvic mass lesion or adenopathy or ascites is evident otherwise. Numerous diverticula of the sigmoid and descending colon; no CT evidence of diverticulitis. No bowel obstruction, bowel wall thickening, pneumatosis or intraperitoneal free air is detected. Bilateral fat-containing inguinal hernias, left larger than right. No suspicious osteolytic or osteoblastic lesions are noted. There is degenerative disc disease of the lumbar and lumbosacral spine, most pronounced at L5-S1. Gra de 1 anterolisthesis at L4-5 due to degenerative change at the apophyseal joints. IMPRESSION: Interval prominent hepatomegaly due to severe metastatic disease, significantly advanced since 10/25/2019 Cholelithiasis Small sliding hiatal hernia Diverticulosis of the left colon; no CT evidence of diverticulitis Severe left renal diffuse atrophy Status post prostatectomy Emphysema Reviewed, dictated and finalized at [facility]. Reviewed, dictated and finalized at location B.
== END 2020-05-27 06:57 | disposition home or self-care (01) ==
LOC: ANHIMG 06:58
PROVIDERS: Visit Provider Internal Medicine Hematology & Oncology
DX: C66.1 Malignant neoplasm of right ureter (principal); C78.7 Secondary malignant neoplasm of liver and intrahepatic bile duct; K80.20 Calculus of gallbladder without cholecystitis without obstruction; K44.9 Diaphragmatic hernia without obstruction or gangrene; K57.90 Diverticulosis of intestine, part unspecified, without perforation or abscess without bleeding; N26.1 Atrophy of kidney (terminal); Z90.79 Acquired absence of other genital organ(s); J43.9 Emphysema, unspecified
CPT/HCPCS: 36415; 74176; 80048; 80053; 82948; 85025; 96361; 96366; 96367; 96375; 96413; J1100; J1200; J2405; J7030; J7050; J9267